=== PATIENT | male | born 1950 ===

== ENCOUNTER 2024-02-08 02:53 | Emergency (ER) | payer MEDICARE ==
[~2024-02-08] VITALS: Ht 167.6 cm; Wt 131.8 kg
[2024-02-08 03:15] VITALS: TEMP 98.5
[2024-02-08] MEDS: AmLODIPine BESYLATE 10 MG TABLET PO ONE (05:29)
[2024-02-08 05:59] LABS: BASOPHILS % (AUTO) 0.1 % (0.0-2.0); EOSINOPHILS % (AUTO) 0.1 % (1.0-6.0); HEMATOCRIT 46.9 % (41-53); HEMOGLOBIN 15.8 g/dL (13.5-17.5); LYMPHOCYTES # (AUTO) 1.8 K/uL (1.0-4.8); LYMPHOCYTES % (AUTO) 17.9 % (22.0-44.0); MEAN CORPUSCULAR HEMOGLOBIN 32.7 pg (26.0-34.0); MEAN CORPUSCULAR HGB CONC 33.6 G/dL (31.0-37.0); MEAN CORPUSCULAR VOLUME 97 fL (80-100); MONOCYTES # (AUTO) 0.7 K/uL (0.1-1.0); NEUTROPHILS # (AUTO) 7.7 K/uL (1.8-7.7); NEUTROPHILS % (AUTO) 74.9 % (40.0-70.0); PLATELET COUNT (AUTO) 177 K/uL (150-450); RED BLOOD CELL COUNT(AUTO) 4.83 MIL/uL (4.50-5.90); RED CELL DISTRIBUTION WIDTH 13.8 % (11.5-14.5); WHITE BLOOD COUNT (AUTO) 10.2 K/uL (4.5-11.0)
[2024-02-08 06:05] LABS: ANION GAP 9 mmol/L (8-16); CALCIUM, TOTAL 9.2 mg/dL (8.8-10.5); CARBON DIOXIDE 26 mmol/L (22-29); CHLORIDE 103 mmol/L (98-107); CREATININE 1.03 mg/dL (0.60-1.30); GLOMERULAR FILTR. RATE CALC > 60 mL/min (>60); GLUCOSE,RANDOM 120 mg/dL (70-110); POTASSIUM 3.4 mmol/L (3.5-5.1); SODIUM SERUM 138 mmol/L (136-145); UREA NITROGEN, BLOOD 21 mg/dL (7-18)
[2024-02-08 06:13] LABS: TROPONIN I-HIGH SENSITIVITY 15 ng/L (<76)
[2024-02-08] MEDS ORDERED: HYDR25TA2 PO (06:46)
[2024-02-08] MEDS ORDERED: ZOLP-280 PO (06:46)
[2024-02-08] MEDS ORDERED: LORA-999 PO (06:48)
[2024-02-08 07:04] VITALS: BP 163/101; PULSE 69; RESP 16
== END 2024-02-08 07:16 | disposition home or self-care (01) ==
LOC: EMS 02:53
DX: G47.00 Insomnia, unspecified (principal); I10 Essential (primary) hypertension; R51.9 Headache, unspecified; Z79.899 Other long term (current) drug therapy
CPT/HCPCS: 80048; 84484; 85025; 93005; 99284

== ENCOUNTER 2024-02-14 21:41 | Emergency (ER) | payer MEDICARE ==
[~2024-02-14] VITALS: Ht 167.6 cm; Wt 104.5 kg
[~2024-02-14 21:41] MED LIST: HYDR25TA2 PO; LORA-999 PO
[2024-02-14 21:46] VITALS: TEMP 98.2
[2024-02-14 23:11] VITALS: BP 151/89; PULSE 89; RESP 18
[2024-02-14] MEDS ORDERED: AZIT250T9 PO (23:22)
== END 2024-02-14 23:36 | disposition home or self-care (01) ==
LOC: EMS 21:41
DX: J02.9 Acute pharyngitis, unspecified (principal); I10 Essential (primary) hypertension
CPT/HCPCS: 87430; 99283